=== PATIENT | male | born 1980 ===

== ENCOUNTER 2022-06-09 19:37 | Emergency (ER) | payer OTHER | END 2022-06-09 22:56 | disposition home or self-care (01) | LOC: MW.ED 19:37 | DX: S92.522B Displaced fracture of middle phalanx of left lesser toe(s), initial encounter for open fracture (principal); Z88.0 Allergy status to penicillin; Z79.899 Other long term (current) drug therapy; W20.8XXA Other cause of strike by thrown, projected or falling object, initial encounter; Y99.0 Civilian activity done for income or pay | CPT/HCPCS: 73630-26-LT; 73630-LT; 99283 ==